=== PATIENT | male | born 1955 | race African-American/Black ===

== ENCOUNTER 2017-07-06 10:11 | Emergency (ER) | payer BC ==
[~2017-07-06] VITALS: Ht 182.9 cm; Wt 72.7 kg
[~2017-07-06 10:11] MED LIST: HCTZ 25MG TAB25 MG PO; MOTRIN 800800 MG/TAB PO; MULTI VITAMINS1 TAB PO; PRILOSEC 20MG20 MG PO; ROXICODONE 55 MG/TAB PO; TENORMIN100 MG PO
[2017-07-06 10:42] VITALS: TEMP 98.2
[2017-07-06] MEDS ORDERED: FISH OIL 1000MG1 CAP PO (10:47)
[2017-07-06] MEDS ORDERED: ASPIRIN 32325 MG/TAB PO (10:47)
[2017-07-06] MEDS ORDERED: BACTRIM DS 8001 TAB PO (12:32)
[2017-07-06 13:06] VITALS: BP 182/109; PULSE 76
== END 2017-07-06 13:07 | disposition home or self-care (01) ==
LOC: COL.ER 10:11
DX: M70.21 Olecranon bursitis, right elbow (principal); I10 Essential (primary) hypertension; F17.210 Nicotine dependence, cigarettes, uncomplicated; Z79.82 Long term (current) use of aspirin

== ENCOUNTER → 2020-12-07 | Day surgery (SDC) | payer MEDICARE ==
[2020-12-07] VITALS (7 sets, daily range): BP systolic 124–166; BP diastolic 62–100; PULSE 80–86; TEMP 98.3–98.7
[~2020-12-07] VITALS: Ht 177.8 cm; Wt 73.1 kg
[~2020-12-07] MED LIST changes: +ASPIRIN 32325 MG/TAB PO; +BACTRIM DS 8001 TAB PO; +FISH OIL 1000MG1 CAP PO; +NORCO 325 MG-51 TAB PO; +TOPROL XL200 MG PO
--- NOTE | 2020-12-07 08:54 | NUR ---
5MG IV LABETALOL REPEATED FOR BLOOD PRESSURE 158/94.
--- NOTE | 2020-12-07 12:00 | NUR ---
Patient returns to room 6 per cart from surgery and is awake and alert. IV fluids infusing at 100cc/hr. Temp 98.5 and sats 97% on 2L per nasal cannula. Bandaids x3 on abdomen clean and dry. Scrotal support on. Siderails up x2 and call light in reach. Allowed to rest.
--- NOTE | 2020-12-07 12:15 | NUR ---
Resting and offers no complaints.
--- NOTE | 2020-12-07 12:30 | NUR ---
Awake and sitting up on cart drinking coffee. Denies pain or nausea.
--- NOTE | 2020-12-07 12:45 | NUR ---
Denies pain or nausea and continues to sip on coffee.
--- NOTE | 2020-12-07 13:00 | NUR ---
Eating chocolate pudding.
--- NOTE | 2020-12-07 13:15 | NUR ---
Medicated with [place] 5mg one tab for complaints of pain at 12/26.
--- NOTE | 2020-12-07 13:27 | NUR ---
Assisted up to the bathroom and voids. Gait steady and states that the pain medication helped.
--- NOTE | 2020-12-07 13:41 | NUR ---
Word Processing Operator received referral on patient has he reports difficulty affording his medications, specifically his Toprol XL for his blood pressure. ARELI met with patient who is here for outpatient surgery and will discharge home today. Patient lives in [place] with his , Maria (ph#[phone]) and sees Dr. Holcomb for primary care. [facility] [address] ARELI discussed a medication voucher with patient who advised he is agreeable to have the prescriptions sent to [facility] if [facility] could not accept voucher. ARELI collaborated with Dr. Torres to get hard copies of the prescriptions for Toprol XL and [place]. ARELI contacted Brianne Pharmacist at [facility] who checked and then advised they would accept medication voucher. Total for the voucher is $36.51. ARELI met with patient and explained he would need to take voucher and presciptions to [facility] and patient verbalized understanding. ARELI contacted ARELI Johnson at Dr. Holcomb's office who will follow up next week to provide additional resources and support for obtaining medications. ARELI collaborated the above information to [facility].
--- NOTE | 2020-12-07 14:00 | NUR ---
IV discontinued and given dismissal instructions and voices understanding of this. conference services manager has provided patient with voucher for blood pressure medication and pain medication. Ride notified and will be here in approximately 40 minutes. Will rest on cart until ride here.
--- NOTE | 2020-12-07 14:45 | NUR ---
Dressed and resting on cart and awaits ride home.
== END ==
LOC: SDCO
DX: K40.90 Unilateral inguinal hernia, without obstruction or gangrene, not specified as recurrent (principal); D17.6 Benign lipomatous neoplasm of spermatic cord; K66.0 Peritoneal adhesions (postprocedural) (postinfection); K21.9 Gastro-esophageal reflux disease without esophagitis; C77.0 Secondary and unspecified malignant neoplasm of lymph nodes of head, face and neck; I10 Essential (primary) hypertension; F17.210 Nicotine dependence, cigarettes, uncomplicated; Z20.822 Contact with and (suspected) exposure to COVID-19; Z85.818 Personal history of malignant neoplasm of other sites of lip, oral cavity, and pharynx; Z93.1 Gastrostomy status; Z92.21 Personal history of antineoplastic chemotherapy; Z85.828 Personal history of other malignant neoplasm of skin
CPT/HCPCS: C1781; J0690; J1170; J2250; J2704; J3010; J7120

== ENCOUNTER 2021-07-11 10:02 | Emergency (ER) | payer MEDICARE ==
[~2021-07-11] VITALS: Ht 180.3 cm; Wt 72.7 kg
[2021-07-11 10:09] VITALS: BP 163/89; TEMP 97.9
[2021-07-11 11:12] VITALS: PULSE 75
== END 2021-07-11 11:14 | disposition home or self-care (01) ==
LOC: COL.ER 10:02
DX: K06.8 Other specified disorders of gingiva and edentulous alveolar ridge (principal); K08.409 Partial loss of teeth, unspecified cause, unspecified class; I10 Essential (primary) hypertension; F17.210 Nicotine dependence, cigarettes, uncomplicated; Z79.899 Other long term (current) drug therapy